=== PATIENT | male | born 1950 | race Hispanic/Latino ===

== ENCOUNTER → 2017-08-29 | Outpatient (CLI) | payer MEDICARE ==
[~2017-08-29] MED LIST: ASPI-1197 PO; BACL10TA PO; LISI10TA7 PO; METO50TA18 PO; PRAV20TA4 PO; PREG150C PO; TRAM-355 PO
== END | disposition home or self-care (01) ==
LOC: RAH 09:47
PROVIDERS: ATTEND Internal Medicine
DX: I70.0 Atherosclerosis of aorta (principal); Z87.891 Personal history of nicotine dependence
CPT/HCPCS: 76775

== ENCOUNTER → 2018-06-03 | Outpatient (CLI) | payer MEDICARE | END | disposition home or self-care (01) | LOC: RAH 13:18 | PROVIDERS: ATTEND Internal Medicine | DX: M48.061 Spinal stenosis, lumbar region without neurogenic claudication (principal); M51.16 Intervertebral disc disorders with radiculopathy, lumbar region; M47.892 Other spondylosis, cervical region; M48.02 Spinal stenosis, cervical region; M50.21 Other cervical disc displacement, high cervical region; Z72.89 Other problems related to lifestyle | CPT/HCPCS: 72141; 72148 ==

== ENCOUNTER → 2019-01-27 | Outpatient (CLI) | payer MEDICARE ==
[~2019-01-27] MED LIST changes: -ASPI-1197 PO; +CLOP75TA14 PO; -LISI10TA7 PO; +LISI30TA4 PO; +METF-444 PO; +METO100T14 PO; -METO50TA18 PO
== END | disposition home or self-care (01) ==
LOC: RAH 11:04
PROVIDERS: ATTEND Internal Medicine
DX: R07.81 Pleurodynia (principal)
CPT/HCPCS: 71100